=== PATIENT | male | born 1975 | race Caucasian/White ===

== ENCOUNTER 2016-11-09 20:04 | Emergency (ER) | payer MEDICARE, OTHER ==
[~2016-11-09] VITALS: Ht 172.7 cm; Wt 102.1 kg
--- OUTSIDE RECORDS SUMMARY | 2016-11-09 20:11 | XMS REPORT | Continuity of Care Document ---
Author Author [facility] Organization [facility] Address Unknown Phone Unavailable Care Team Providers Care Ethnic Studies Professor Name Role Phone Amanuel Casey PCP [phone] Source Comments Some departments are not documenting in the electronic medical record. If you do not see the information that you expected, contact Release of Information in the Health Information Management department at [phone] for further assistance in locating additional records.[facility] Active Allergies and Adverse Reactions Allergen Noted Date Severity Reactions Comments Gluten 01/04/2015 Low UNKNOWN Nitrate Analogues 07/10/2016 Low SEE COMMENTS Altered mental status Current Medications Prescription Sig. Disp. Refills Start End Date Status Date ACETAMINOPHEN (TYLENOL Take 1,000 mg by mouth Active PO) twice daily as needed. aspirin EC 81 mg tablet Take 81 mg by mouth daily Active as needed. MULTIVITAMINS WITH Take 1 Tab by mouth Active FLUORIDE (MULTI-VITAMIN daily. PO) fish oil /omega-3 fatty Take 2 Caps by mouth Active acids (SEA-OMEGA) daily. 340/1000 mg capsule COQ10 (UBIQUINOL) PO Take 1 Tab by mouth Active daily. IBUPROFEN PO Take 600-800 mg by mouth Active twice daily as needed. HERBAL DRUGS OP Take 1 Tab by mouth daily Active as needed. Indications: fever few herbal product for pain Active Problems Problem Noted Date MS (multiple sclerosis) ([facility]) 06/08/2012 Overview: Multiple Sclerosis Subtype: Relapsing/remitting last relapse 2007 Symptom onset: 2003 Date of Diagnosis: 2003 Prior Medication failures: Rebif- side effects. Was stable on Copaxone, But stopped because of side effects (About 2011) Current DMD: None MRI HEAD WO/W CONTRAST 2015 Extensive white matter disease with a new small nonenhancing lesion within the anterior right frontal white matter, consistent with progression of multiple sclerosis. No enhancing lesions are identified L ast Assessment & Plan: Patient is clinically stable. He has a new lesion on MRI. I discussed the possibility of [facility] with [facility] and his . However, he really doesn't want to do it. Will re check MRI in 6 months. Patient will continue Vitamin D and will try to reduce stress, eat better, exercise. Migraine 06/08/2012 Overview: No headaches in several years. L ast Assessment & Plan: Under control with paying attention to his diet. 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 Respiratory Rate - - Height 1.727 m (5' 8") 07/10/2016 1:56 PM CDT Weight 105.1 kg (231 lb 11.3 oz) 07/10/2016 1:56 PM CDT Body Mass Index 35.24 07/10/2016 1:56 PM CDT Oxygen Saturation 94% 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
[2016-11-09] MEDS ORDERED: LORA10TA72 PO (20:20)
[2016-11-09] MEDS ORDERED: ASPI-586 PO (20:20)
[2016-11-09] MEDS ORDERED: PRD10T PO (20:20)
[2016-11-09] MEDS ORDERED: CYCL10TA9 PO (20:50)
--- NOTE | 2016-11-09 20:57 | ED General ---
General Chief Complaint: Bite-Animal/Human/Insect Stated Complaint: BEE STING TO FACE/NECK AND SHOULDER PAIN Nursing Triage Note: bee sting to right face approx. 1500. seen by pcp for same started on benadryl cream/steroid pack. approx. 1800 pt devoloped pain in left neck radiating to left shoulder. Nursing Sepsis Screen: No Definite Risk Source of Information: Patient, Spouse History of Present Illness Time Seen by Provider: 20:37 Initial Comments PT ARRIVES VIA POV STATES HE WAS STUNG BY A BEE ON RIGHT JAW/CHEEK AT 1500 TODAY PT KEEPS HONEY BEES AND GETS STUNG ALL THE TIME, HAS LOCAL REACTION SOMETIMES THROAT FELT ITCHY AND FELT LIKE HE HAD SENSATION OF SOMETHING IN THE BACK OF HIS THROAT, SO SAW SAND CUTTER AT DR. BUITRAGO'S THIS AFTERNOON. WAS GIVEN RX FOR STEROID DOSE PACK AND TOOK A SINGLE PILL OF PREDNISONE AND 1 CLARITIN AT 1800 TODAY NO DIFFICULTY SWALLOWING NO CHEST PAIN NO SHORTNESS OF BREATH NO SWELLING TO FACE OR INSIDE OF MOUTH NO ITCHING OR RASH THIS EVENING HE BEGAN TO HAVE PAIN IN LEFT NECK TO LEFT SHOULDER, SO CAME TO ER. HAS NOT TAKEN ANYTHING FOR PAIN PCP: DR. BUITRAGO Allergies and Home Medications Allergies Coded Allergies: No Known Drug Allergies (Unverified , 11/09/16) Home Medications Aspirin 81 Mg Tablet.dr 81 MG PO UD (Reported) Cyclobenzaprine HCl 10 Mg Tablet #9 10 MG PO Q8H Prescribed by: GIFTY GALEANO on 11/09/162049 Loratadine 10 Mg Tab.rapdis 10 MG PO UD (Reported) Prednisone 10 Mg Tab 10 MG PO UD (Reported) Constitutional: no symptoms reportedNo chills, No diaphoresis, No dizziness, No fever EENTM: see HPINo mouth pain, No mouth swelling, No throat pain, No throat swelling Respiratory: no symptoms reported Cardiovascular: no symptoms reported Gastrointestinal: no symptoms reported Genitourinary: no symptoms reported Musculoskeletal: see HPI Skin: see HPI Psychiatric/Neurological: No Symptoms ReportedDenies Headache, Denies Numbness , Denies Paresthesia, Denies Tingling, Denies Tremors, Denies Weakness Hematologic/Lymphatic: No Symptoms Reported Immunological/Allergic: no symptoms reported Past Iqtyhps-Rekgsy-Guefpq Hx Patient Social History Alcohol Use: Rarely Uses Recreational Drug Use: No Smoking Status: Never a Smoker 2nd Hand Smoke Exposure: No Recent Foreign Travel: No Contact w/Someone Who Travel: No Recent Infectious Disease Expo: No Recent Hopitalizations: No Immunizations Up To Date Tetanus Booster (TDap): Less than 5yrs PED Vaccines UTD: Yes Seasonal Allergies Seasonal Allergies: Yes Surgeries HX Surgeries: Yes (ANGIOPLASTY TO LEFT JUGULAR VEIN FOR MALFORMATION) Surgeries: Vascular Surgery Respiratory Hx Respiratory Disorders: No Cardiovascular Hx Cardiac Disorders: Yes (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 ANGIOPLASTY) Neurological Hx Neurological Disorders: Yes (NO MEDICATIONS FOR M.S.) Neurological Disorders: Multiple Sclerosis Reproductive System Hx Reproductive Disorders: No Genitourinary Hx Genitourinary Disorders: No Gastrointestinal Hx Gastrointestinal Disorders: No Musculoskeletal Hx Musculoskeletal Disorders: No Endocrine Hx Endocrine Disorders: No HEENT HX ENT Disorders: No Cancer Hx Cancer: No Psychosocial Hx Psychiatric Problems: No Integumentary HX Skin/Integumentary Disorder: No Blood Transfusions Hx Blood Disorders: No Physical Exam Vital Signs Vital Sign - Last 12Hours 11/09/16 20:20 Temp 98.0 Pulse 88 Resp 18 B/P 145/84 Pulse Ox 97 O2 Delivery Room Air Capillary Refill : Less Than 3 Seconds General Appearance: No Apparent Distress WD/WNNo Anxious HEENT: PERRL/EOMI TMs Normal Normal ENT Inspection Pharynx Normal Neck: Full Range of Motion Normal Inspection Non Tender Supple Respiratory: Chest Non Tender Normal Breath Sounds No Accessory Muscle Use No Respiratory Distress Cardiovascular: Regular Rate, Rhythm No Edema No JVD No Murmur Normal Peripheral Pulses Gastrointestinal: Normal Bowel Sounds No Organomegaly No Pulsatile Mass Non Tender Soft Back: No CVA Tenderness No Vertebral Tenderness Other (MILD TENDERNESS AND MUSCLE SPASM TO LEFT TRAPEZIUS MUSCLE--PALPATION REPRODUCES SYMPTOMS) Extremity: Normal Capillary Refill Normal Inspection Normal Range of Motion Non Tender No Calf Tenderness No Pedal Edema Neurologic/Psychiatric: Alert Oriented x3 No Motor/Sensory Deficits Normal Mood/Affect vice president quality II-XII Norm as Tested Skin: Normal Color Warm/Dry Other (RIGHT LOWER CHEEK/MANDIBLE AREA WITH 1/2 CM FAINT ERYTHEMATOUS PAPULE WITH CENTRAL PUNCTURE SITE. NO SURROUNDING INFLAMMATION. ) Progress/Results/Core Measures Results/Orders My Orders Orders-GIFTY GALEANO DO Ketorolac Injection (Toradol Injection) (11/09/16 21:00) Orphenadrine Injection (Norflex Injectio (11/09/16 21:00) Medications Given in ED Current Medications Medications Dose Ordered Sig/Raeann Route Start Time Stop Time Status Last Admin Dose Admin Ketorolac Tromethamine 60 mg ONCE ONCE IM 11/09/16 21:00 11/09/16 21:01 DC 11/09/16 21:09 60 MG Orphenadrine Citrate 60 mg ONCE ONCE IM 11/09/16 21:00 11/09/16 21:01 DC 11/09/16 21:09 60 MG Vital Signs/I&O Vital Sign - Last 12Hours 11/09/16 11/09/16 11/09/16 20:20 21:09 21:30 Temp 98.0 98.0 98.0 Pulse 88 94 Resp 18 18 B/P 145/84 Pulse Ox 97 98 O2 Delivery Room Air Blood Pressure Mean: 104 Departure Impression Impression: Primary Impression: BEE STING RIGHT CHEEK Additional Impression: LEFT TRAPEZIUS MUSCLE PAIN AND SPASM Disposition: HOME, SELF-CARE Condition: Stable Departure-Patient Inst. Referrals: DANNIE BUITRAGO MD (PCP/Family) Primary Care Physician Patient Instructions: Insect Bites and Stings (DC), Muscle and Bone Pain (DC) Add. Discharge Instructions: TAKE PREDNISONE/STEROID PACK PRESCRIBED TAKE CLARITIN 10 MG DAILY NEEDED FOR ITCHING AND SWELLING AT STING SITE BENADRYL CREAM AND HYDROCORTISONE CREAM 3-4 TIMES A DAY TO STING SITE NEEDED FOR ITCHING LOTS OF CLEAR LIQUIDS FOLLOW UP WITH YOUR DR NEEDED All discharge instructions reviewed with patient and/or family. Voiced understanding. Scripts Cyclobenzaprine HCl 10 Mg [id number] Mg PO Q8H #9 TAB Prov:GIFTY GALEANO DO 11/09/16 GIFTY GALEANO DO Nov 09, 2016 20:57
[2016-11-09] MEDS ORDERED: KETOROLAC 60 MG/2 ML VIAL IM ONE (21:00)
[2016-11-09] MEDS ORDERED: ORPHENADRINE 60 MG/2 ML (NORFLEX) AMP IM ONE (21:00)
[2016-11-09 21:30] VITALS: BP 112/86
== END 2016-11-09 21:35 | disposition home or self-care (01) ==
LOC: EDUNIT# 20:04 → ER 20:06
DX: M62.838 Other muscle spasm (principal); T63.441A Toxic effect of venom of bees, accidental (unintentional), initial encounter; G35 Multiple sclerosis; Z79.82 Long term (current) use of aspirin; Y92.017 Garden or yard in single-family (private) house as the place of occurrence of the external cause
CPT/HCPCS: 96372; 99283

== ENCOUNTER → 2017-11-05 | Outpatient (CLI) | payer MEDICARE, OTHER ==
[~2017-11-05] MED LIST: ASPI-586 PO; CYCL10TA9 PO; LORA10TA72 PO; PRD10T PO
--- NOTE | 2017-11-05 11:26 | Diagnostic Imaging Report ---
Indication: Cough for one month. TIME OF EXAM: 11:15 AM COMPARISON: No prior studies are available for comparison. FINDINGS: The heart size is normal. The lungs are clear. Pulmonary vascularity is normal. No infiltrate, effusion or pneumothorax is detected. IMPRESSION: No acute cardiopulmonary process is detected. Dictated by: Dictated on workstation # [id number]
== END ==
LOC: RAD 10:43
DX: R05 Cough (principal)
CPT/HCPCS: 71046